=== PATIENT | female | born 1955 | race Caucasian/White ===

== ENCOUNTER 2019-03-23 17:58 | Emergency (ER) | payer MEDICARE, OTHER, SELFPAY ==
[2019-03-23] VITALS (34 sets, daily range): BP systolic 113–154; BP diastolic 50–86; PULSE 82–103; RESP 12–26; TEMP 36.7–36.8; O2SAT 93–99
--- NOTE | 2019-03-23 18:11 | DI.RAD_ITS ---
EXAM: XR CHEST 2V PA LATERAL INDICATION: jaw pain. COMPARISON: No exams were available for comparison TECHNIQUE: 2D digital imaging was performed. FINDINGS: The heart is not enlarged. Lungs are clear. No pleural effusion. IMPRESSION: No evidence of acute process.
--- NOTE | 2019-03-23 18:11 | ED.GENADUL_ITS ---
Discharge Plan Disposition Patient Disposition: HOME Condition: Fair Discharge Details Chief Complaint: Chest Pain Clinical Impression: Chest pain, Acid reflux Primary Care Provider: Leida,Local ED Provider: Crissy Myrick Home Meds and New Rx's Prescriptions: New sucralfate [Carafate] 1 gram tablet 1 gm PO QACHS Qty: 30 RF: 0 Continued losartan 50 mg Tablet 50 mg PO HS RF: 0 clopidogrel [Plavix] 75 mg Tablet 75 mg PO HS RF: 0 aspirin [Aspirin Low Dose] 81 mg Tablet,Delayed Release (Dr/Ec) 81 mg PO DAILY RF: 0 pantoprazole [Protonix] 40 mg Tablet,Delayed Release (Dr/Ec) 40 mg PO DAILY RF: 0 Januvia 100 mg Tablet 100 mg PO HS RF: 0 Coricidin HBP Chest Jamal-Cough 10-200 mg Capsule 1 tab-cap PO ONCE PRNRF: 0 magnesium 250 mg Tablet 500 mg PO BID RF: 0 coenzyme Q10 [Co Q-10] 100 mg Capsule 100 mg PO BID RF: 0 Vitamin D3 4,000 unit Capsule 4,000 unit PO DAILY RF: 0 Discharge Instructions Instructions: Sucralfate (By mouth), Chest Pain (ED), Gastroesophageal Reflux Disease (ED) Additional Instructions: Encourage water intake. Please take medications as previously prescribed. Carafate 4 times daily, 1 hour prior to meals then prior to bed. Please try to avoid foods that cause increased acidity. Please keep your appointment with your fire tower keeper. If you develop chest pain, shortness of breath or other new/worsening symptoms please seek care urgently once again. Do not hesitate to return to the hospital or call with any concerns. Medical Decision Making Patient is 63-year-old female presents today with chief complaint of burning in her chest. Her symptoms have been persistent for the past hour and a half. Has had these symptoms historically multiple occasions. Reports she was recently seen by the care of this is the acid reflux. Patient does have history of LAD stent placement and follow-up with her fire tower keeper and second 1 week. She denies any breath. Denies chest pain is having some burning radiating up into the chest. States that she has a bad taste in the back of her mouth associated with this. States that this is similar to when she has had gastric reflux history of patient does have history of hernia. Denies any recent cough, cold, fever/chills. No sore throat. Denies any nausea or vomiting. No change in urinary or bowel habits. Patient is female and has history of diabetes, and concern for possible atypical ACS presentation. While it would be atypical, also considered diagnosis of pulmonary embolism as she did just recently travel here. Plan for laboratory evaluation. Have a GI cocktail but this is similar to when she has had acid reflux historically. EKG was reviewed by Dr. Cruz. Patient in a sinus rhythm with a rate of 94. No acute ischemic changes are noted. CXR reviewed by radiologist: FINDINGS: Lungs: Unremarkable. No consolidation. Pleural space: Unremarkable. No pleural effusion. No pneumothorax. Heart/Mediastinum: Unremarkable. No cardiomegaly. Bones/joints: Unremarkable for patient's age. IMPRESSION: No acute findings. Labs reviewed. No leukocytosis. Patient is anemic. D-dimer is 441. Her creatinine is elevated at 1.15 have for comparison. She is currently receiving hydration. Is seen in slightly elevated but she reports this is chronic this being followed by her primary care. Troponin is less than 0.05. Discussed the above findings with the patient. She is been resting comfortably. Feels that the symptoms are worsening from a supine position. Again, supports more of the acid reflux diagnosis and ACS. Patient reports that she had a stress test 1 year ago after having similar symptoms and presented to emergency department. However, at that time she was having more chest pain and she is currently. Repeat troponin remains <0.05 Patient I had a lengthy discussion regarding disposition. She is a high risk patient particularly given her history of stent placement, diabetes. She has been taking her Plavix as prescribed. Has not missed any doses. Repeat troponin x2 is normal, no abnormalities in the EKG or chest x-ray. At this time, patient is requesting discharge. We did offer admission and she is declining at this time. Prefers to go home and follow-up with her fire tower keeper in 1 week. She was given strict return precautions. Same with family was able to ensure that she come back with any new or worsening symptoms. All of her questions and concerns were addressed and is agreement this plan. I this most consistent with acid reflux, will begin the patient on Carafate. We will give her first dosing here as pharmacies are closed at this time. HPI General Mode of arrival: ambulatory . Date/Time Provider Initiated Documentation: 03/23/19 18:10 . Limitations to Documentation: no limitations . Information obtained by: patient and RN notes reviewed . HPI Narrative: Patient is 63-year-old female with history of diabetes, GERD, hiatal hernia and CAD, presenting today with chief complaint of burning in the back of her throat and her chest.. Patient reports that she has had a stent placed in the LAD in 2017. States that her presenting symptoms before CAD arise tachycardia noticed by her primary care. She reports that the symptoms she is currently having are not similar to what she experienced previously. She also endorses some pin prickling to the jaw and upper extremities. Denies any pain in the neck of the jaw. Has not had any fevers. She does have history of hiatal hernia and GERD as well. States that it does have a feeling similar to that of her acid reflux. She did just fly here from [place] which resides full-time. No personal or family history of blood clot. Pain is not worse with exertion. She has been noticing the symptoms for the past month and reports they have progressively been increasing. Reports that the symptoms typically come on when a sedentary such as riding the car not exertional. She reports that she walked up a large hill today and did not have any of these symptoms during that time. She has associated with certain foods provoking symptoms. Related Data Home Medications Medication Instructions Recorded Confirmed Coricidin HBP Chest Jamal-Cough 1 tab-cap PO ONCE PRN 03/23/19 03/23/19 Januvia 100 mg PO HS 03/23/19 03/23/19 Vitamin D3 4,000 unit PO DAILY 03/23/19 03/23/19 aspirin [Aspirin Low Dose] 81 mg PO DAILY 03/23/19 03/23/19 clopidogrel [Plavix] 75 mg PO HS 03/23/19 03/23/19 coenzyme Q10 [Co Q-10] 100 mg PO BID 03/23/19 03/23/19 losartan 50 mg PO HS 03/23/19 03/23/19 magnesium 500 mg PO BID 03/23/19 03/23/19 pantoprazole [Protonix] 40 mg PO DAILY 03/23/19 03/23/19 sucralfate [Carafate] 1 gm PO QACHS #30 tab 03/23/19 Previous Rx's Medication Instructions Recorded sucralfate [Carafate] 1 gm PO QACHS #30 tab 03/23/19 Allergies Allergy/AdvReac Type Severity Reaction Status Date / Time amoxicillin [From Augmentin] AdvReac Itching Unverified 03/23/19 18:22 cephalexin AdvReac Itching Unverified 03/23/19 18:22 clavulanic acid AdvReac Itching Unverified 03/23/19 18:22 [From Augmentin] codeine AdvReac Other (See Unverified 03/23/19 18:22 Comment) hydrochlorothiazide AdvReac Itching Unverified 03/23/19 18:22 metoprolol AdvReac Itching Unverified 03/23/19 18:22 ofloxacin [From Floxin] AdvReac Other (See Unverified 03/23/19 18:22 Comment) Quinolones AdvReac Itching Unverified 03/23/19 18:22 silver AdvReac Skin Rash Unverified 03/23/19 18:22 [From Tegaderm AG Mesh] sulfamethoxazole AdvReac Itching Unverified 03/23/19 18:22 [From Septra] trimethoprim [From Septra] AdvReac Itching Unverified 03/23/19 18:22 Review of Systems Constitutional Constitutional: Reports as per HPI, Denies chills, Denies fever(s), Denies headache(s), Denies lethargy and Denies poor appetite Eyes Eyes: Denies change in vision ENT Ears, Nose, Mouth, and Throat: Denies dizziness and Denies headache(s) Cardiovascular Cardiovascular: Reports as per HPI, Denies dyspnea and Denies dyspnea on exertion Respiratory Respiratory: Reports as per HPI, Denies chest congestion, Denies cough, Denies pain on inspiration, Denies pain with cough, Denies dyspnea, Denies dyspnea on exertion and Denies wheezing Gastrointestinal Gastrointestinal: Reports as per HPI, Denies abdominal pain, Denies diarrhea, Denies nausea and Denies vomiting Musculoskeletal Musculoskeletal: Reports as per HPI and Denies back pain Integumentary/Breasts Skin/Breast: Reports as per HPI and Denies rash Neurologic Neurologic: Reports as per HPI, Denies dizziness and Denies headache(s) Allergic/Immunologic Allergic/Immunologic: Denies wheezing [employer] [facility] [facility] Medical History Diabetes (Chronic) Diverticulosis (Acute) Fatty liver (Acute) GERD (gastroesophageal reflux disease) (Chronic) Hiatal hernia (Chronic) Hypertension (Chronic) Kidney stones (Chronic) Surgical History H/O angioplasty (Acute) H/O heart artery stent (Chronic) History of cholecystectomy (Chronic) History of hysterectomy (Chronic) Social History Smoking/Tobacco Use Status: Never Alcohol Intake: current Alcohol Intake frequency: holidays/special occasions only Drug use: Never Substance use type: does not use Exam Const General: cooperative, healthy appearing, comfortable, no acute distress and well developed Nutritional Appearance: well nourished and overweight Orientation: alert, awake and oriented x3 HENMT Head: normal to inspection Ears: hearing grossly normal bilaterally Mouth: moist mucous membranes Chest Chest: normal inspection of the chest, normal palpation of entire chest wall and no crepitus Resp Effort & Inspection: normal respiratory effort, able to speak in complete sentences and no respiratory distress Auscultation: clear to auscultation bilaterally, no rales, no rhonchi and no wheezes Cardio Rate: regular rate Rhythm: regular rhythm Heart Sounds: S1 normal and S2 normal GI Inspection: normal to inspection, no edema and non-distended Palpation: soft, no hepatosplenomegaly, not firm, no guarding, not rigid and nontender Auscultation: normal bowel sounds Back/Spine/Pelvis Back: no CVA tenderness Skin General skin exam: no rashes or lesions noted Trauma: no lacerations or abrasions Neuro General: alert, awake and oriented x3 Cognition: normal cognition Speech: speech normal Gait: normal gait Extrem General: normal to inspection, normal capillary refill, no pedal edema, no calf tenderness and normal gait Psych Appearance: grossly normal and well kempt Mental Status: mental status grossly normal Speech and Movement: speech and movement normal
[2019-03-23 18:43] LABS: Abs Immature Grans 0.01 k/cumm (0.0-0.09); Absolute Basophil Count 0.02 k/cumm (0.0-0.2); Absolute Eosinophil Count 0.18 k/cumm (0.0-0.7); Absolute Lymphocyte Count 1.37 k/cumm (1.2-3.4); Absolute Monocyte Count 0.38 k/cumm (0.11-0.7); Absolute Neutrophil Count 3.77 k/cumm (1.2-6.7); Basophils % 0.3; Eosinophils % 3.1; HCT 37.1 % (36.0-46.0); HGB 12.2 g/dL (12.0-15.5); Immature Grans % 0.2; Lymphocytes % 23.9; Mean Corp. HGB Concentration 32.9 g/dL (32.0-36.0); Mean Corpuscular Volume 85.3 fL (80-95); Monocytes % 6.6; Neutrophils % 65.9; Platelet Count 240 x1000/uL (130-400); RBC 4.35 m/cumm (4.00-5.20); RBC Distribution Width 13.6 % (11.7-14.6); White Blood Cell Count 5.73 k/cumm (4.4-10.8)
[2019-03-23 18:57] LABS: ALT 80 U/L (14-59); AST 42 U/L (15-37); Alkaline Phosphatase 68 U/L (46-116); Anion Gap 10.3 mmol/L (3-11); BUN 13 mg/dL (7-18); Bilirubin, Total 0.4 mg/dL (0.2-1.0); CO2 27.7 mmol/L (21.0-32.0); CREATININE 1.15 mg/dL (0.55-1.02); Calcium 8.8 mg/dL (8.5-10.1); Chloride 101 mmol/L (98-107); Estimated GFR 47.51 (mL/min/1.73m2); Glucose 147 mg/dL (70-100); Magnesium 1.8 mg/dL (1.8-2.4); Potassium 4.1 mmol/L (3.5-5.1); Sodium 139 mmol/L (136-145); Total Protein 7.5 g/dL (6.4-8.2)
[2019-03-23 18:59] LABS: Troponin I < 0.05 ng/mL (0.00-0.06)
--- NOTE | 2019-03-23 19:05 | DI.VRAD_ITS ---
PROCEDURE INFORMATION: Exam: XR Chest, 2 Views Exam date and time: 03/23/2019 6:44 PM Clinical history: 63 years old, female; Patient HX: Jaw pain; Per ED provider: Concern for PERAZA TECHNIQUE: Imaging protocol: XR of the chest Views: 2 views. COMPARISON: No relevant prior studies available. FINDINGS: Lungs: Unremarkable. No consolidation. Pleural space: Unremarkable. No pleural effusion. No pneumothorax. Heart/Mediastinum: Unremarkable. No cardiomegaly. Bones/joints: Unremarkable for patient's age. IMPRESSION: No acute findings. Dictated and Authenticated by: Cailin Henderson MD. Ordering:HEYDI Woodward MD
[2019-03-23 19:21] LABS: D-Dimer 441 ng/mlFEU (<500)
[2019-03-23 21:38] LABS: Troponin I < 0.05 ng/mL (0.00-0.06)
[2019-03-23] MEDS: Sucralfate 1 GM TAB 2 GM PO (22:23)
--- NOTE | 2019-03-23 22:36 | NUR.NOTE ---
IV removed, discharge instructions reviewed with verbal understanding. aware to f/u with cards as planned. Script given. ambulated to exit with steady gait.
== END 2019-03-23 22:30 | disposition home or self-care (01) ==
PROVIDERS: Emergency Provider Physician Assistant
DX: R07.9 Chest pain, unspecified (principal); K21.9 Gastro-esophageal reflux disease without esophagitis; E11.9 Type 2 diabetes mellitus without complications
CPT/HCPCS: 36415; 80053; 99284; 71046; 83735; 84484; 85025; 85379